=== PATIENT | female | born 1960 | race Caucasian/White ===

== ENCOUNTER 2017-05-31 16:39 | Inpatient (IN) | payer OTHER ==
[~2017-05-31] VITALS: Ht 165.1 cm; Wt 105.0 kg
[~2017-05-31 16:39] MED LIST: ALBU18HF INH; ASPI-496 PO; CARI350T14 PO; DICL100G19 TP; FLUT16SP NS; GLIP-164 PO; GUAI-103 PO; HYDR-3245 PO; LEVO88TA4 PO; LIRA0.6P SC; LOSA25TA5 PO; METF500T27 PO; METO100T5 PO; MULT-658 PO; NATE60TA PO; RABE20TA26 PO; SENN1TAB67 PO; SIMV20TA3 PO; SITA100T PO; TRIA1TAB3 PO; VENL150C6 PO
[2017-05-31] MEDS ORDERED: SODIUM CHLORIDE 0.9% 1,000 ML IV ONE (17:12)
[2017-05-31] MEDS ORDERED: ONDANSETRON 2MG/ML, 2ML IVPush ONE (17:30)
[2017-05-31] MEDS ORDERED: SODIUM CHLORIDE FLUSH 10ML SYR IVF ONE (17:30)
[2017-05-31] MEDS ORDERED: HYDROmorphone 1 MG/ML, 1ML IVPush PRN (17:30)
[2017-05-31] MEDS ORDERED: ONDANSETRON 2MG/ML, 2ML ONE (17:57)
[2017-05-31] MEDS ORDERED: HYDROmorphone 1 MG/ML, 1ML ONE (17:57)
[2017-05-31 17:59] LABS: HEMATOCRIT 47.2 % (34.6-47.8); HEMOGLOBIN 15.1 g/dL (11.7-16.4); WHITE BLOOD COUNT 14.2 x10^3/uL (3.4-10)
[2017-05-31 18:03] LABS: ASPARTATE AMINO TRANSFERASE 19 U/L (15-37); BLOOD UREA NITROGEN 17 mg/dL (7-18)
[2017-05-31] MEDS ORDERED: CEFTRIAXONE PMX 1GM/50ML 50 ML IVPB ONE (19:00)
[2017-05-31] MEDS ORDERED: SODIUM CHLORIDE 0.9% 1,000ML IVBOLUS ONE (19:00)
[2017-05-31] MEDS ORDERED: GUAIFENESIN/DM 200-20MG, 10ML UDC PO PRN (20:00)
[2017-05-31] MEDS ORDERED: ONDANSETRON 2MG/ML, 2ML IVPush PRN (20:00)
[2017-05-31] MEDS ORDERED: LABETALOL 5MG/ML, 20ML IVPush PRN (20:00)
[2017-05-31] MEDS ORDERED: FLUTICASONE NASAL SPRAY 16GM NAS PRN (20:00)
[2017-05-31] MEDS ORDERED: ONDANSETRON ODT 4 MG PO PRN (20:00)
[2017-05-31 20:17] LABS: BLOOD UREA NITROGEN 16 mg/dL (7-18)
[2017-05-31] MEDS ORDERED: CEFTRIAXONE PMX 1GM/50ML 50 ML ONE (20:26)
[2017-05-31 20:41] VITALS: BP 140/86
[2017-05-31 20:47] VITALS: BP 142/86
[2017-05-31] MEDS: INSULIN ASPART 100 UNITS/ML, PEN SQ-INSULIN SCH (21:00)
[2017-05-31] MEDS: SODIUM CHLORIDE 0.9% 1,000 ML IV SCH (22:15)
[2017-05-31] MEDS: CEFTRIAXONE PMX 2GM/50ML 50 ML IV SCH (22:16)
[2017-05-31] MEDS: PANTOPROZOLE 40MG TABLET PO SCH (22:47)
[2017-05-31] MEDS: SIMVASTATIN 20 MG TABLET PO SCH (22:47)
[2017-05-31] MEDS: CARISOPRODOL 350 MG TABLET PO SCH (22:47)
[2017-05-31] MEDS: HEPARIN 5,000 UNITS/ML, 1ML SQ SCH (22:47)
[2017-05-31] MEDS: INSULIN DETEMIR 100 UNITS/ML, PEN SQ-INSULIN SCH (22:48)
[2017-06-01 00:13] VITALS: BP 116/73
[2017-06-01] MEDS: OXYcodone IR 5MG TABLET PO PRN ×4 (00:19→22:08)
[2017-06-01] MEDS: SODIUM CHLORIDE 0.9% 1,000 ML IV SCH ×2 (05:16→15:38)
[2017-06-01 05:40] LABS: ASPARTATE AMINO TRANSFERASE 21 U/L (15-37); BLOOD UREA NITROGEN 13 mg/dL (7-18)
[2017-06-01] MEDS: INSULIN ASPART 100 UNITS/ML, PEN SQ-INSULIN SCH ×4 (07:00→22:38)
[2017-06-01 08:06] VITALS: BP 128/66
[2017-06-01] MEDS: INSULIN DETEMIR 100 UNITS/ML, PEN SQ-INSULIN SCH ×2 (08:07→20:22)
[2017-06-01] MEDS: HEPARIN 5,000 UNITS/ML, 1ML SQ SCH ×3 (08:08→22:04)
[2017-06-01] MEDS: VENLAFAXINE 75 MG CAP ER PO SCH (08:08)
[2017-06-01] MEDS: LEVOTHYROXINE 88 MCG TABLET PO SCH (08:09)
[2017-06-01] MEDS: CARISOPRODOL 350 MG TABLET PO SCH ×2 (08:09→22:05)
[2017-06-01] MEDS: ASPIRIN 81 MG TABLET EC PO SCH (08:09)
[2017-06-01] MEDS: TRIAMTERENE-HCTZ 37.5/25 MG TABLET PO SCH (08:09)
[2017-06-01] MEDS: METOPROLOL SUCCINATE 100 MG TAB.ER.24H PO SCH (08:09)
[2017-06-01] MEDS: LOSARTAN 25MG TABLET PO SCH (08:09)
[2017-06-01 08:50] LABS: HEMATOCRIT 39.6 % (34.6-47.8); HEMOGLOBIN 12.7 g/dL (11.7-16.4); WHITE BLOOD COUNT 9.6 x10^3/uL (3.4-10)
[2017-06-01] MEDS ORDERED: POTASSIUM CHLORIDE 20 MEQ TAB.ER.PRT PO ONE (09:00)
[2017-06-01 14:00] VITALS: BP_SYST 111; BP_SYST 94; BP_DIAS 67; BP_DIAS 72
[2017-06-01 18:46] VITALS: BP 105/69
[2017-06-01] MEDS: CEFTRIAXONE PMX 2GM/50ML 50 ML IV SCH (20:22)
[2017-06-01] MEDS: PANTOPROZOLE 40MG TABLET PO SCH (22:04)
[2017-06-01] MEDS: SIMVASTATIN 20 MG TABLET PO SCH (22:05)
[2017-06-02 01:57] VITALS: BP 137/83
[2017-06-02] MEDS: OXYcodone IR 5MG TABLET PO PRN ×4 (02:29→21:46)
[2017-06-02] MEDS: SODIUM CHLORIDE 0.9% 1,000 ML IV SCH ×3 (02:29→21:27)
[2017-06-02 05:34] LABS: HEMATOCRIT 43.8 % (34.6-47.8); WHITE BLOOD COUNT 9.7 x10^3/uL (3.4-10)
[2017-06-02 05:42] LABS: BLOOD UREA NITROGEN 8 mg/dL (7-18)
[2017-06-02] MEDS: LEVOTHYROXINE 88 MCG TABLET PO SCH (06:28)
[2017-06-02] MEDS: INSULIN ASPART 100 UNITS/ML, PEN SQ-INSULIN SCH ×4 (06:43→21:48)
[2017-06-02] MEDS: HEPARIN 5,000 UNITS/ML, 1ML SQ SCH ×3 (06:44→23:24)
[2017-06-02] MEDS: INSULIN DETEMIR 100 UNITS/ML, PEN SQ-INSULIN SCH ×2 (07:27→21:47)
[2017-06-02] MEDS: ASPIRIN 81 MG TABLET EC PO SCH (07:28)
[2017-06-02] MEDS: VENLAFAXINE 75 MG CAP ER PO SCH (07:28)
[2017-06-02] MEDS: LOSARTAN 25MG TABLET PO SCH (07:28)
[2017-06-02] MEDS: CARISOPRODOL 350 MG TABLET PO SCH ×2 (07:29→21:27)
[2017-06-02] MEDS: METOPROLOL SUCCINATE 100 MG TAB.ER.24H PO SCH (07:29)
[2017-06-02] MEDS: TRIAMTERENE-HCTZ 37.5/25 MG TABLET PO SCH (07:29)
[2017-06-02 07:55] VITALS: BP 119/74
[2017-06-02 13:57] VITALS: BP 116/75
[2017-06-02 19:15] VITALS: BP 151/84
[2017-06-02] MEDS: PANTOPROZOLE 40MG TABLET PO SCH (21:27)
[2017-06-02] MEDS: CEFTRIAXONE PMX 2GM/50ML 50 ML IV SCH (21:27)
[2017-06-02] MEDS: SIMVASTATIN 20 MG TABLET PO SCH (21:28)
[2017-06-03 03:00] VITALS: BP 134/82
[2017-06-03] MEDS: OXYcodone IR 5MG TABLET PO PRN ×2 (03:20→08:34)
[2017-06-03 05:12] LABS: HEMATOCRIT 41.5 % (34.6-47.8); HEMOGLOBIN 13.2 g/dL (11.7-16.4); WHITE BLOOD COUNT 8.8 x10^3/uL (3.4-10)
[2017-06-03 05:17] LABS: BLOOD UREA NITROGEN 10 mg/dL (7-18)
[2017-06-03] MEDS: SODIUM CHLORIDE 0.9% 1,000 ML IV SCH (05:28)
[2017-06-03] MEDS: LEVOTHYROXINE 88 MCG TABLET PO SCH (05:28)
[2017-06-03] MEDS: INSULIN ASPART 100 UNITS/ML, PEN SQ-INSULIN SCH ×2 (07:00→12:36)
[2017-06-03 07:26] VITALS: BP 150/75
[2017-06-03] MEDS: HEPARIN 5,000 UNITS/ML, 1ML SQ SCH (08:21)
[2017-06-03] MEDS: INSULIN DETEMIR 100 UNITS/ML, PEN SQ-INSULIN SCH (08:21)
[2017-06-03] MEDS: LOSARTAN 25MG TABLET PO SCH (08:22)
[2017-06-03] MEDS: VENLAFAXINE 75 MG CAP ER PO SCH (08:22)
[2017-06-03] MEDS: ASPIRIN 81 MG TABLET EC PO SCH (08:22)
[2017-06-03] MEDS: TRIAMTERENE-HCTZ 37.5/25 MG TABLET PO SCH (08:22)
[2017-06-03] MEDS: CARISOPRODOL 350 MG TABLET PO SCH (08:22)
[2017-06-03] MEDS: METOPROLOL SUCCINATE 100 MG TAB.ER.24H PO SCH (08:23)
[2017-06-03] MEDS ORDERED: CEFD300C37 PO (10:59)
[2017-06-03] MEDS ORDERED: INSU100V8 SQ (11:00)
== END 2017-06-03 13:20 | disposition home or self-care (01) | DRG 871 ==
LOC: ED 19:04 → EDIP 19:50 → 3NE 20:30 → DCLOUNGE 06-03 12:53
PROVIDERS: ADMIT Hospitalist; ATTEND Hospitalist
PROC: 0T9B70Z Drainage of Bladder with Drainage Device, Via Natural or Artificial Opening (ICD-10-PCS; principal; 2017-05-31)
DX: A41.9 Sepsis, unspecified organism (principal); N17.0 Acute kidney failure with tubular necrosis; E43 Unspecified severe protein-calorie malnutrition; E87.2 Acidosis; E86.0 Dehydration; N30.90 Cystitis, unspecified without hematuria; G89.29 Other chronic pain; M25.519 Pain in unspecified shoulder; M54.9 Dorsalgia, unspecified; E03.9 Hypothyroidism, unspecified; E66.01 Morbid (severe) obesity due to excess calories; E78.5 Hyperlipidemia, unspecified; E87.6 Hypokalemia; I10 Essential (primary) hypertension; K21.9 Gastro-esophageal reflux disease without esophagitis; Z96.643 Presence of artificial hip joint, bilateral; Z96.653 Presence of artificial knee joint, bilateral; E11.65 Type 2 diabetes mellitus with hyperglycemia; Z68.35 Body mass index [BMI] 35.0-35.9, adult; Z87.891 Personal history of nicotine dependence; Z98.891 History of uterine scar from previous surgery; Z98.1 Arthrodesis status; Z88.1 Allergy status to other antibiotic agents; Z88.8 Allergy status to other drugs, medicaments and biological substances; Z91.048 Other nonmedicinal substance allergy status; Z79.4 Long term (current) use of insulin; Z79.82 Long term (current) use of aspirin; Z80.1 Family history of malignant neoplasm of trachea, bronchus and lung; Z82.5 Family history of asthma and other chronic lower respiratory diseases; Z83.3 Family history of diabetes mellitus
CPT/HCPCS: 36415; 71010; 80048; 80053; 80061; 81001; 82010; 82040; 82962; 83036; 83605; 83690; 83880; 84145; 84439; 84443; 85025; 85610; 85651; 87040; 87086; 93005; 93306; 96374; 96375; J0696; J1170; J1644; J1815; J2405; J7030

== ENCOUNTER → 2017-09-18 | Outpatient (CLI) | payer OTHER ==
[~2017-09-18] MED LIST changes: +CEFD300C37 PO; +INSU100V8 SQ
== END | disposition home or self-care (01) ==
LOC: CFH 14:23
PROVIDERS: ATTEND Family Medicine
DX: R91.8 Other nonspecific abnormal finding of lung field (principal)
CPT/HCPCS: 71020

== ENCOUNTER 2017-10-01 14:18 | Emergency (ER) | payer OTHER ==
[~2017-10-01] VITALS: Ht 165.1 cm; Wt 126.5 kg
[2017-10-01] MEDS ORDERED: ALBUTEROL/IPRATROPIUM 2.5MG/0.5MG, 3 ML ONE (15:26)
[2017-10-01] MEDS ORDERED: ALBUTEROL/IPRATROPIUM 2.5MG/0.5MG, 3 ML NPPB ONE (15:30)
[2017-10-01 15:40] LABS: RAPID INFLUENZA A Negative (Negative)
[2017-10-01 15:41] LABS: RAPID INFLUENZA B Negative (Negative)
[2017-10-01 16:56] VITALS: BP 137/61
== END 2017-10-01 17:02 | disposition home or self-care (01) ==
LOC: ED 16:56
DX: J20.9 Acute bronchitis, unspecified (principal); J18.9 Pneumonia, unspecified organism; R09.02 Hypoxemia; I10 Essential (primary) hypertension; E11.9 Type 2 diabetes mellitus without complications
CPT/HCPCS: 71020; 87400; 93005; 94640; 99285; J7512; J7620

== ENCOUNTER → 2018-02-12 | Outpatient (CLI) | payer OTHER | END | disposition home or self-care (01) | LOC: CFH 16:48 | PROVIDERS: ATTEND Neurological Surgery | DX: M47.896 Other spondylosis, lumbar region (principal); K80.20 Calculus of gallbladder without cholecystitis without obstruction | CPT/HCPCS: 72110 ==

== ENCOUNTER 2018-10-08 07:15 | Day surgery (SDC) | payer OTHER ==
[~2018-10-08] VITALS: Ht 165.1 cm; Wt 120.0 kg
[~2018-10-08 07:15] MED LIST changes: -GLIP-164 PO; +GLIP10TA24 PO; +LOSA25TA25 PO; -LOSA25TA5 PO
[2018-10-08] MEDS ORDERED: LACTATED RINGERS 1,000 ML IV SCH (07:52)
[2018-10-08 08:41] VITALS: BP 116/75
[2018-10-08] MEDS ORDERED: FENTANYL PF 100 MCG/2ML ONE (08:44)
[2018-10-08] MEDS ORDERED: MIDAZOLAM 1 MG/ML, 2ML ONE (08:51)
[2018-10-08] MEDS ORDERED: GUAI-103 PO (08:55)
[2018-10-08] MEDS ORDERED: HYDR-3245 PO (08:55)
[2018-10-08] MEDS ORDERED: INSU100C5 SQ-INSULIN (08:55)
[2018-10-08] MEDS ORDERED: VENL150C PO (08:55)
[2018-10-08] MEDS ORDERED: INSU100V8 SQ (08:55)
[2018-10-08 08:58] LABS: ALANINE AMINOTRANSFERASE 27 U/L (12-78); ALBUMIN 3.5 g/dL (3.4-5.0); ANION GAP 9 mmol/L (5-15); CALCIUM 8.7 mg/dL (8.5-10.1); CHLORIDE 104 mmol/L (98-107); CREATININE 0.78 mg/dL (0.55-1.02)
[2018-10-08 09:01] LABS: ALKALINE PHOSPHATASE 87 U/L (45-117); BILIRUBIN,TOTAL 0.5 mg/dL (0.2-1.0); TOTAL PROTEIN 6.7 g/dL (6.4-8.2)
[2018-10-08] MEDS ORDERED: FENTANYL PF 100 MCG/2ML IV PRN (09:30)
[2018-10-08] MEDS ORDERED: ACETAMINOPHEN 325 MG TABLET PO PRN (09:30)
[2018-10-08] MEDS ORDERED: ONDANSETRON 2MG/ML, 2ML IV PRN (09:30)
[2018-10-08] MEDS ORDERED: PROPOFOL 10 MG/ML, 20ML ONE (10:52)
== END 2018-10-08 10:35 | disposition home or self-care (01) ==
LOC: OUT 07:15
PROVIDERS: ATTEND Internal Medicine Gastroenterology
DX: Z12.11 Encounter for screening for malignant neoplasm of colon (principal); D12.4 Benign neoplasm of descending colon; K57.30 Diverticulosis of large intestine without perforation or abscess without bleeding; K64.8 Other hemorrhoids; E11.9 Type 2 diabetes mellitus without complications; K21.9 Gastro-esophageal reflux disease without esophagitis; F32.9 Major depressive disorder, single episode, unspecified; E78.00 Pure hypercholesterolemia, unspecified; I10 Essential (primary) hypertension; F15.90 Other stimulant use, unspecified, uncomplicated; M19.90 Unspecified osteoarthritis, unspecified site; E66.9 Obesity, unspecified; Z68.44 Body mass index [BMI] 60.0-69.9, adult; Z98.890 Other specified postprocedural states; Z96.643 Presence of artificial hip joint, bilateral; Z79.4 Long term (current) use of insulin; Z79.899 Other long term (current) drug therapy; Z79.82 Long term (current) use of aspirin; Z88.1 Allergy status to other antibiotic agents; Z88.8 Allergy status to other drugs, medicaments and biological substances; Z91.048 Other nonmedicinal substance allergy status; Z86.010 Personal history of colon polyps; Z87.891 Personal history of nicotine dependence; Z83.71 Family history of colonic polyps; Z83.3 Family history of diabetes mellitus; Z82.49 Family history of ischemic heart disease and other diseases of the circulatory system
CPT/HCPCS: 36415; 45385; 80053; 82962; 88305; 93005; J2250; J2704; J3010; J7120

== ENCOUNTER → 2019-02-10 | Outpatient (CLI) | payer OTHER ==
[~2019-02-10] MED LIST changes: +INSU100C5 SQ-INSULIN; +VENL150C PO
== END | disposition home or self-care (01) ==
LOC: CFH 12:36
PROVIDERS: ATTEND Family Medicine
DX: N63.20 Unspecified lump in the left breast, unspecified quadrant (principal)
CPT/HCPCS: 76641; 77065; G0279

== ENCOUNTER → 2019-08-05 | Outpatient (CLI) | payer MEDICARE ==
[~2019-08-05] MED LIST changes: -FLUT16SP NS; +FLUT16SP24 NS; +INSU100I32 SQ; +LIDOCANE INJ; +LOPE-114 PO; +OIL PO; +TIZA4CAP PO; +VOLTAREN TP; +WHEA1POW5 PO; +diclofenac gel TP; +probiotic PO; +vitamin b 12 PO
[2019-08-05 15:22] LABS: BASOPHILS # (AUTO) 0.05 x10^3/uL (0-0.1); BASOPHILS % (AUTO) 0 % (0-1); EOSINOPHILS # (AUTO) 0.13 x10^3/uL (0-0.4); EOSINOPHILS % (AUTO) 1 % (1-7); LYMPHOCYTES # (AUTO) 1.64 x10^3/uL (1-3.4); LYMPHOCYTES % (AUTO) 15 % (22-44); MD NO; MEAN CORPUSCULAR HEMOGLOBIN 27.9 pg (27.0-34.8); MEAN CORPUSCULAR HGB CONC 31.9 g/dL (32.4-35.8); MEAN CORPUSCULAR VOLUME 87.4 fL (80-100); MEAN PLATELET VOLUME 7.9 fL (7.4-10.4); MONOCYTES # (AUTO) 0.59 x10^3/uL (0.2-0.8); MONOCYTES % (AUTO) 5 % (2-9); NEUTROPHILS # (AUTO) 8.84 x10^3/uL (1.8-6.8); NEUTROPHILS % (AUTO) 79 % (42-75); PLATELET COUNT 336 x10^3/uL (130-400); RED CELL DISTRIBUTION WIDTH 16.6 % (9.6-15.2)
[2019-08-05 15:35] LABS: ALANINE AMINOTRANSFERASE 26 U/L (12-78); ALBUMIN 3.5 g/dL (3.4-5.0); ANION GAP 5 mmol/L (5-15); CHLORIDE 103 mmol/L (98-107); CREATININE 1.05 mg/dL (0.55-1.02)
[2019-08-05 15:37] LABS: ALKALINE PHOSPHATASE 103 U/L (45-117); BILIRUBIN,TOTAL 0.2 mg/dL (0.2-1.0); TOTAL PROTEIN 6.8 g/dL (6.4-8.2)
[2019-08-05 15:53] LABS: INTERNATIONAL NORMALIZED RATIO 0.92 (0.93-1.1); PROTHROMBIN TIME 9.7 Seconds (9.6-11.5)
== END | disposition home or self-care (01) ==
LOC: STAR 13:50
PROVIDERS: ATTEND Family Medicine
DX: Z01.818 Encounter for other preprocedural examination (principal); R19.07 Generalized intra-abdominal and pelvic swelling, mass and lump; J90 Pleural effusion, not elsewhere classified; J98.11 Atelectasis; E11.9 Type 2 diabetes mellitus without complications
CPT/HCPCS: 36415; 71046; 80053; 85025; 85610; 85730; 93005

== ENCOUNTER 2019-08-24 14:59 | Outpatient (CLI) | payer MEDICARE | END 2019-08-24 23:59 | disposition home or self-care (01) | LOC: CVU 14:59 → RAD 23:59 | PROVIDERS: ATTEND Family Medicine | DX: R06.02 Shortness of breath (principal); R07.89 Other chest pain; Z91.040 Latex allergy status; Z88.9 Allergy status to unspecified drugs, medicaments and biological substances; Z88.8 Allergy status to other drugs, medicaments and biological substances; Z88.1 Allergy status to other antibiotic agents; Z88.2 Allergy status to sulfonamides; Z87.891 Personal history of nicotine dependence | CPT/HCPCS: 71046 ==

== ENCOUNTER 2019-08-24 17:22 | Inpatient (IN) | payer MEDICARE ==
[~2019-08-24] VITALS: Ht 162.6 cm; Wt 127.0 kg
--- NOTE | 2019-08-24 17:54 | NUR ---
THIS IS A 59 THAT CAME IN FOR OUTPT XRAY AND THOROCENTISIS OUTPATIENT. WHILE WAITING WORSENING SOB WAITING FOR PROCEEDURE. APT WAS CHANGED TO TOMORROW, DUE TO WORSENING SOB PT CAME TO ER FOR TX. UPON ARRIVAL TO ROOM PT O2 SAT 70% ON 4L NC. PT PLACED ON MAST AT 9L WAITING FOR RESPIRATORY ARRIVAL. O2 SAT UP TO 95%. REPIRATORY PLACED PT ON OPTIFLOW AT 15L O2 SAT 96%.
--- NOTE | 2019-08-24 18:10 | NUR ---
REPIRATORY CALLED TO ASSIST TRANSPORT PT TO IR. PT ON WAY TO IR NOW
[2019-08-24] MEDS ORDERED: ONDANSETRON 2MG/ML, 2ML IVPush ONE (19:30)
[2019-08-24] MEDS ORDERED: MORPHINE SULFATE 4 MG/ML, 1ML IVPush PRN (19:30)
--- NOTE | 2019-08-24 19:35 | NUR ---
RESPIRATORY AT BEDSIDE TO WEAN PT FROM OPTIFLOW. PT ON 13L VIA MASK O2 SAT 91%
[2019-08-24] MEDS ORDERED: ONDANSETRON 2MG/ML, 2ML ONE (19:38)
[2019-08-24] MEDS ORDERED: MORPHINE SULFATE 4 MG/ML, 1ML ONE (19:39)
--- NOTE | 2019-08-24 20:05 | NUR ---
HOSPITALIST AT BEDSIDE TO ADMIT PT
[2019-08-24] MEDS ORDERED: FLUTICASONE NASAL SPRAY 16GM NAS PRN (20:30)
[2019-08-24] MEDS ORDERED: POLYETHYLENE GLYCOL 17 GM PACKET PO PRN (20:30)
[2019-08-24] MEDS ORDERED: morphine SULFATE 10 MG/ML, 1ML IVPush PRN (20:30)
[2019-08-24] MEDS ORDERED: SODIUM CHLORIDE FLUSH 10ML SYR IVF PRN (20:30)
[2019-08-24] MEDS ORDERED: BISACODYL 10 MG SUPP PR PRN (20:30)
[2019-08-24] MEDS ORDERED: ONDANSETRON ODT 4 MG PO PRN (20:30)
[2019-08-24] MEDS ORDERED: WHEAT DEXTRIN PO SCH (20:30)
[2019-08-24] MEDS ORDERED: ACETAMINOPHEN 325 MG TABLET PO PRN (20:30)
[2019-08-24 20:41] LABS: BASOPHILS # (AUTO) 0.05 x10^3/uL (0-0.1); BASOPHILS % (AUTO) 1 % (0-1); EOSINOPHILS # (AUTO) 0.15 x10^3/uL (0-0.4); EOSINOPHILS % (AUTO) 1 % (1-7); LYMPHOCYTES # (AUTO) 1.53 x10^3/uL (1-3.4); LYMPHOCYTES % (AUTO) 13 % (22-44); MD NO; MEAN CORPUSCULAR HEMOGLOBIN 27.2 pg (27.0-34.8); MEAN CORPUSCULAR HGB CONC 31.6 g/dL (32.4-35.8); MEAN CORPUSCULAR VOLUME 86.1 fL (80-100); MEAN PLATELET VOLUME 7.7 fL (7.4-10.4); MONOCYTES # (AUTO) 0.73 x10^3/uL (0.2-0.8); MONOCYTES % (AUTO) 6 % (2-9); NEUTROPHILS % (AUTO) 79 % (42-75); PLATELET COUNT 359 x10^3/uL (130-400); RED BLOOD COUNT 4.95 x10^6/uL (3.82-5.3)
[2019-08-24 20:46] LABS: ALANINE AMINOTRANSFERASE 26 U/L (12-78); ALBUMIN 3.2 g/dL (3.4-5.0); ANION GAP 5 mmol/L (5-15); CALCIUM 9.2 mg/dL (8.5-10.1); CHLORIDE 100 mmol/L (98-107); CREATININE 0.82 mg/dL (0.55-1.02)
[2019-08-24 20:48] LABS: ALKALINE PHOSPHATASE 111 U/L (45-117); BILIRUBIN,TOTAL 0.3 mg/dL (0.2-1.0)
[2019-08-24] MEDS: INSULIN DEGLUDEC 100 UNIT SQ SCH (21:00)
[2019-08-24] MEDS: INSULIN ASPART 100 UNIT SQ SCH (21:00)
[2019-08-24] MEDS ORDERED: OMNIPAQUE 350 MG/ML, 75ML BOTTLE ONE (21:18)
--- NOTE | 2019-08-24 21:24 | NUR ---
PT BACK FROM CT READY FOR TRANSPORT TO FLOOR.
[2019-08-24 21:46] VITALS: BP 136/76
[2019-08-24] MEDS ORDERED: VENLAFAXINE 75 MG CAP ER PO SCH (22:00)
[2019-08-24] MEDS: SODIUM CHLORIDE FLUSH 10ML SYR IVF SCH (22:45)
[2019-08-24] MEDS ORDERED: TIZANIDINE 4MG TABLET PO ONE (23:00)
[2019-08-24] MEDS: SIMVASTATIN 20 MG TABLET PO SCH (23:03)
[2019-08-24] MEDS: HYDROcodone/APAP 10/325 MG TABLET PO PRN (23:03)
[2019-08-25] MEDS: TIZANIDINE 4MG TABLET PO SCH ×2 (00:04→20:24)
[2019-08-25 04:31] VITALS: BP 104/63
[2019-08-25 04:46] LABS: BASOPHILS # (AUTO) 0.03 x10^3/uL (0-0.1); BASOPHILS % (AUTO) 0 % (0-1); EOSINOPHILS # (AUTO) 0.13 x10^3/uL (0-0.4); EOSINOPHILS % (AUTO) 2 % (1-7); LYMPHOCYTES # (AUTO) 1.45 x10^3/uL (1-3.4); LYMPHOCYTES % (AUTO) 17 % (22-44); MD NO; MEAN CORPUSCULAR HEMOGLOBIN 26.9 pg (27.0-34.8); MEAN CORPUSCULAR HGB CONC 31.3 g/dL (32.4-35.8); MEAN CORPUSCULAR VOLUME 86.2 fL (80-100); MEAN PLATELET VOLUME 7.7 fL (7.4-10.4); MONOCYTES # (AUTO) 0.54 x10^3/uL (0.2-0.8); MONOCYTES % (AUTO) 6 % (2-9); NEUTROPHILS % (AUTO) 75 % (42-75); PLATELET COUNT 292 x10^3/uL (130-400); RED BLOOD COUNT 4.37 x10^6/uL (3.82-5.3); RED CELL DISTRIBUTION WIDTH 16.5 % (9.6-15.2)
[2019-08-25 04:56] LABS: ALANINE AMINOTRANSFERASE 22 U/L (12-78); ALBUMIN 2.6 g/dL (3.4-5.0); ANION GAP 3 mmol/L (5-15); CALCIUM 8.8 mg/dL (8.5-10.1); CHLORIDE 101 mmol/L (98-107); CREATININE 0.85 mg/dL (0.55-1.02)
[2019-08-25 04:59] LABS: ALKALINE PHOSPHATASE 92 U/L (45-117); BILIRUBIN,TOTAL 0.2 mg/dL (0.2-1.0); TOTAL PROTEIN 5.9 g/dL (6.4-8.2)
[2019-08-25] MEDS: LEVOTHYROXINE 88 MCG TABLET PO SCH (05:58)
[2019-08-25] MEDS: HYDROcodone/APAP 10/325 MG TABLET PO PRN ×4 (06:10→18:43)
[2019-08-25 07:35] VITALS: BP 118/62
[2019-08-25] MEDS ORDERED: TIZANIDINE 4MG TABLET PO SCH (09:00)
[2019-08-25] MEDS: INSULIN DEGLUDEC 100 UNIT SQ SCH (09:00)
[2019-08-25] MEDS: INSULIN ASPART 100 UNIT SQ SCH (09:00)
[2019-08-25] MEDS ORDERED: INSULIN DEGLUDEC 30 UNIT SQ SCH ×2 (09:00→21:00)
[2019-08-25] MEDS: SODIUM CHLORIDE FLUSH 10ML SYR IVF SCH ×2 (09:57→20:24)
[2019-08-25] MEDS: LOSARTAN 25MG TABLET PO SCH (09:58)
[2019-08-25] MEDS: TRIAMTERENE-HCTZ 37.5/25 MG TABLET PO SCH (09:58)
[2019-08-25] MEDS: CYANOCOBALAMIN 1,000 MCG TABLET PO SCH (09:58)
[2019-08-25] MEDS: ASPIRIN 81 MG TABLET EC PO SCH (09:58)
[2019-08-25] MEDS: SENNA/DOCUSATE TABLET PO SCH ×2 (09:58→10:02)
[2019-08-25] MEDS: LOPERAMIDE 2 MG CAPSULE PO SCH (09:58)
[2019-08-25] MEDS: METOPROLOL SUCCINATE 50 MG TAB.ER.24H PO SCH (09:58)
[2019-08-25] MEDS ORDERED: INSULIN ASPART 100 UNIT SQ SCH (11:03)
[2019-08-25 13:58] VITALS: BP 114/61
[2019-08-25] MEDS ORDERED: INSULIN LISPRO 100 UNITS/ML, PEN SQ-INSULIN SCH ×2 (16:00→21:00)
[2019-08-25] MEDS: INSULIN ASPART 100 UNITS/ML, VIAL SQ-INSULIN SCH ×2 (16:05→20:25)
[2019-08-25 19:55] VITALS: BP 110/61
[2019-08-25] MEDS: SIMVASTATIN 20 MG TABLET PO SCH (20:24)
[2019-08-25] MEDS: VENLAFAXINE 75 MG CAP ER PO SCH (20:24)
[2019-08-25] MEDS: INSULIN DEGLUDEC 30 UNIT SQ SCH (20:26)
[2019-08-25] MEDS: DEXAMETHASONE 4 MG TABLET PO SCH (20:34)
[2019-08-26] MEDS: HYDROcodone/APAP 10/325 MG TABLET PO PRN ×6 (00:14→21:54)
[2019-08-26 02:06] VITALS: BP 123/64
[2019-08-26] MEDS: LEVOTHYROXINE 88 MCG TABLET PO SCH (05:28)
[2019-08-26 07:11] VITALS: BP 110/64
[2019-08-26] MEDS: INSULIN ASPART 100 UNITS/ML, VIAL SQ-INSULIN SCH ×4 (07:41→23:55)
[2019-08-26] MEDS: INSULIN DEGLUDEC 30 UNIT SQ SCH ×2 (07:41→20:28)
[2019-08-26] MEDS: METOPROLOL SUCCINATE 50 MG TAB.ER.24H PO SCH (07:43)
[2019-08-26] MEDS: VENLAFAXINE 75 MG CAP ER PO SCH ×2 (07:43→21:50)
[2019-08-26] MEDS: TRIAMTERENE-HCTZ 37.5/25 MG TABLET PO SCH (07:43)
[2019-08-26] MEDS: DEXAMETHASONE 4 MG TABLET PO SCH (07:44)
[2019-08-26] MEDS: LOSARTAN 25MG TABLET PO SCH (07:44)
[2019-08-26] MEDS: CYANOCOBALAMIN 1,000 MCG TABLET PO SCH (07:44)
[2019-08-26] MEDS: LOPERAMIDE 2 MG CAPSULE PO SCH (07:44)
[2019-08-26] MEDS: ASPIRIN 81 MG TABLET EC PO SCH (07:44)
[2019-08-26 08:48] LABS: BASOPHILS % (AUTO) 0 % (0-1); EOSINOPHILS % (AUTO) 0 % (1-7); LYMPHOCYTES # (AUTO) 0.72 x10^3/uL (1-3.4); LYMPHOCYTES % (AUTO) 9 % (22-44); MD NO; MEAN CORPUSCULAR HGB CONC 31.3 g/dL (32.4-35.8); MEAN CORPUSCULAR VOLUME 86.3 fL (80-100); MEAN PLATELET VOLUME 7.8 fL (7.4-10.4); MONOCYTES # (AUTO) 0.07 x10^3/uL (0.2-0.8); MONOCYTES % (AUTO) 1 % (2-9); NEUTROPHILS # (AUTO) 7.72 x10^3/uL (1.8-6.8); NEUTROPHILS % (AUTO) 91 % (42-75); PLATELET COUNT 312 x10^3/uL (130-400); RED BLOOD COUNT 4.74 x10^6/uL (3.82-5.3); RED CELL DISTRIBUTION WIDTH 16.6 % (9.6-15.2)
[2019-08-26 08:59] LABS: ALBUMIN 2.9 g/dL (3.4-5.0); ANION GAP 5 mmol/L (5-15); CALCIUM 8.8 mg/dL (8.5-10.1); CHLORIDE 99 mmol/L (98-107)
[2019-08-26] MEDS: SENNA/DOCUSATE TABLET PO SCH ×2 (09:00→21:50)
[2019-08-26 09:05] LABS: ALANINE AMINOTRANSFERASE 26 U/L (12-78); ALKALINE PHOSPHATASE 108 U/L (45-117); BILIRUBIN,TOTAL 0.3 mg/dL (0.2-1.0); CREATININE 0.91 mg/dL (0.55-1.02); TOTAL PROTEIN 6.9 g/dL (6.4-8.2)
[2019-08-26] MEDS ORDERED: FUROSEMIDE 20 MG/2 ML IV ONE (09:30)
[2019-08-26] MEDS: SODIUM CHLORIDE FLUSH 10ML SYR IVF SCH ×3 (09:50→21:00)
[2019-08-26] MEDS ORDERED: ONDANSETRON 16 MG, DEXAMETHASONE 12 MG in SODIUM CHLORIDE 0.9% 50 ML IVPB ONE (12:00)
[2019-08-26] MEDS ORDERED: FAMOTIDINE 20 MG/2 ML IVPush ONE (12:00)
[2019-08-26] MEDS ORDERED: DIPHENHYDRAMINE 50 MG/ML, 1ML IVPush ONE (12:00)
[2019-08-26] MEDS ORDERED: PACLITAXEL 350 MG in SODIUM CHLORIDE 0.9% 500 ML IV ONE (12:30)
[2019-08-26 15:18] VITALS: BP 127/70
[2019-08-26] MEDS ORDERED: CARBOPLATIN 900 MG in SODIUM CHLORIDE 0.9% 250 ML IV ONE (15:30)
[2019-08-26] MEDS ORDERED: INSULIN ASPART 100 UNITS/ML, VIAL SQ-INSULIN SCH ×3 (16:00)
[2019-08-26 16:22] LABS: MICROSCOPIC NOT IND
[2019-08-26] MEDS ORDERED: DEXTROSE 50%, 50ML SYRINGE IVPush PRN (17:00)
[2019-08-26] MEDS ORDERED: DEXTROSE 4 GM TAB.CHEW PO PRN (17:00)
[2019-08-26] MEDS ORDERED: ICN INSULIN (R) 0.5 UNITS/ML IV SQ-INSULIN SCH (17:00)
[2019-08-26] MEDS ORDERED: GLUCAGON 1 MG IM PRN (17:00)
[2019-08-26] MEDS ORDERED: INSULIN REGULAR 100 UNITS/ML, 3ML VIAL SQ-INSULIN SCH (17:00)
[2019-08-26 19:15] VITALS: BP 134/79
[2019-08-26] MEDS: SIMVASTATIN 20 MG TABLET PO SCH (21:45)
[2019-08-26] MEDS: TIZANIDINE 4MG TABLET PO SCH (21:50)
[2019-08-26] MEDS ORDERED: INSULIN REGULAR 100 UNITS/ML, 3ML VIAL IVPush SCH (23:00)
[2019-08-27 03:55] VITALS: BP 139/86
[2019-08-27] MEDS: INSULIN ASPART 100 UNITS/ML, VIAL SQ-INSULIN SCH ×4 (04:00→16:00)
[2019-08-27] MEDS: HYDROcodone/APAP 10/325 MG TABLET PO PRN ×3 (04:13→15:04)
[2019-08-27] MEDS: LEVOTHYROXINE 88 MCG TABLET PO SCH (05:23)
[2019-08-27 06:42] VITALS: BP 123/61
[2019-08-27] MEDS: VENLAFAXINE 75 MG CAP ER PO SCH (07:33)
[2019-08-27] MEDS: LOPERAMIDE 2 MG CAPSULE PO SCH (07:33)
[2019-08-27] MEDS: ASPIRIN 81 MG TABLET EC PO SCH (07:33)
[2019-08-27] MEDS: METOPROLOL SUCCINATE 50 MG TAB.ER.24H PO SCH (07:34)
[2019-08-27] MEDS: CYANOCOBALAMIN 1,000 MCG TABLET PO SCH (07:34)
[2019-08-27] MEDS: TRIAMTERENE-HCTZ 37.5/25 MG TABLET PO SCH (07:34)
[2019-08-27] MEDS: LOSARTAN 25MG TABLET PO SCH (07:35)
[2019-08-27] MEDS: SENNA/DOCUSATE TABLET PO SCH (07:35)
[2019-08-27] MEDS: SODIUM CHLORIDE FLUSH 10ML SYR IVF SCH ×2 (07:36)
[2019-08-27] MEDS: INSULIN DEGLUDEC 30 UNIT SQ SCH (07:43)
[2019-08-27] MEDS: ONDANSETRON ODT 4 MG PO SCH ×2 (08:41→15:04)
[2019-08-27] MEDS ORDERED: PROCHLORPERAZINE 5 MG/ML, 2ML IV SCH (12:00)
[2019-08-27 12:21] VITALS: BP 138/62
== END 2019-08-27 17:34 | disposition home or self-care (01) | DRG 180 ==
LOC: MERGE 17:22 → ED 20:08 → EDIP 20:09 → 4NW 21:38 → DCLOUNGE 08-27 17:10
PROVIDERS: ADMIT Internal Medicine; ATTEND Internal Medicine
PROC: 0W993ZZ Drainage of Right Pleural Cavity, Percutaneous Approach (ICD-10-PCS; principal; 2019-08-24)
PROC: 3E04305 Introduction of Other Antineoplastic into Central Vein, Percutaneous Approach (ICD-10-PCS; 2019-08-26)
DX: C78.00 Secondary malignant neoplasm of unspecified lung (principal); J96.21 Acute and chronic respiratory failure with hypoxia; C56.9 Malignant neoplasm of unspecified ovary; J91.0 Malignant pleural effusion; Z68.42 Body mass index [BMI] 45.0-49.9, adult; J81.1 Chronic pulmonary edema; I10 Essential (primary) hypertension; E78.5 Hyperlipidemia, unspecified; E66.01 Morbid (severe) obesity due to excess calories; E11.9 Type 2 diabetes mellitus without complications; E03.9 Hypothyroidism, unspecified; E78.00 Pure hypercholesterolemia, unspecified; G89.29 Other chronic pain; M19.90 Unspecified osteoarthritis, unspecified site; Z79.4 Long term (current) use of insulin; Z80.9 Family history of malignant neoplasm, unspecified; Z82.49 Family history of ischemic heart disease and other diseases of the circulatory system; Z82.5 Family history of asthma and other chronic lower respiratory diseases; Z83.3 Family history of diabetes mellitus; Z87.891 Personal history of nicotine dependence
CPT/HCPCS: 32555; 36415; 71045; 71046; 71260; 80053; 81003; 82947; 82962; 85025; 86304; 96374; 96375; G0378; J1100; J1815; J2405; J9045; J9267; Q0162; Q9967; J0780; J1200; J1940; J2270; J3490; J7040; J7050

== ENCOUNTER 2019-09-08 13:06 | Emergency (ER) | payer MEDICARE ==
[~2019-09-08] VITALS: Ht 162.6 cm; Wt 127.4 kg
[2019-09-08] MEDS ORDERED: ONDANSETRON 2MG/ML, 2ML IVPush ONE (14:00)
[2019-09-08] MEDS ORDERED: MORPHINE SULFATE 4 MG/ML, 1ML IVPush PRN (14:00)
[2019-09-08] MEDS ORDERED: SODIUM CHLORIDE FLUSH 10ML SYR IVF ONE (14:00)
[2019-09-08 14:21] LABS: BASOPHILS # (AUTO) 0.03 x10^3/uL (0-0.1); BASOPHILS % (AUTO) 1 % (0-1); EOSINOPHILS # (AUTO) 0.16 x10^3/uL (0-0.4); EOSINOPHILS % (AUTO) 5 % (1-7); LYMPHOCYTES # (AUTO) 1.18 x10^3/uL (1-3.4); LYMPHOCYTES % (AUTO) 34 % (22-44); MD NO; MEAN CORPUSCULAR HEMOGLOBIN 26.9 pg (27.0-34.8); MEAN CORPUSCULAR HGB CONC 31.1 g/dL (32.4-35.8); MEAN CORPUSCULAR VOLUME 86.4 fL (80-100); MEAN PLATELET VOLUME 7.2 fL (7.4-10.4); MONOCYTES # (AUTO) 0.53 x10^3/uL (0.2-0.8); MONOCYTES % (AUTO) 15 % (2-9); NEUTROPHILS # (AUTO) 1.63 x10^3/uL (1.8-6.8); NEUTROPHILS % (AUTO) 46 % (42-75); PLATELET COUNT 297 x10^3/uL (130-400); RED BLOOD COUNT 4.82 x10^6/uL (3.82-5.3); RED CELL DISTRIBUTION WIDTH 17.1 % (9.6-15.2)
[2019-09-08 14:28] LABS: ALBUMIN 3.5 g/dL (3.4-5.0); CALCIUM 9.1 mg/dL (8.5-10.1); CREATININE 0.82 mg/dL (0.55-1.02)
--- NOTE | 2019-09-08 14:29 | NUR ---
PT A&OX4, RESP LABORED, SPEECH CLEAR, ABLE TO SPEAK IN SHORT COMPLETE SENTENCES, SKIN WNL. STATES "COULD NOT BREATH DUE TO MY OVARIAN CANCER PUSHING UP ON MY LUNG." DAILY MEDS TAKEN TODAY; PAIN MED TAKEN AT 0800, MISSED NOON DOSE.
[2019-09-08 14:34] LABS: TROPONIN I < 0.015 ng/mL (0.000-0.045)
[2019-09-08 14:36] LABS: ANION GAP 4 mmol/L (5-15); CHLORIDE 103 mmol/L (98-107)
--- NOTE | 2019-09-08 14:43 | NUR ---
ROOM AIR O2 SAT: 85%. O2 REAPPLIED; WILL BE TITRATED. USUAL HOME O2: 3LNC
--- NOTE | 2019-09-08 15:10 | NUR ---
AMBULATORY TO ROOM BR & BACK TO [facility]; VERY WINDED W/ EXERTION; GAIT STEADY.
[2019-09-08] MEDS ORDERED: HYDROcodone/APAP 5/325 TABLET ONE (15:11)
[2019-09-08] MEDS ORDERED: DICL100G19 TP (15:29)
[2019-09-08] MEDS ORDERED: LIDO700A20 TD (15:29)
[2019-09-08] MEDS ORDERED: VENL150C6 PO (15:29)
[2019-09-08] MEDS ORDERED: HYDROcodone/APAP 5/325 TABLET PO ONE (15:30)
[2019-09-08] MEDS ORDERED: LIDOCAINE-MPF 1%, 5ML ONE ×2 (16:15→16:30)
--- NOTE | 2019-09-08 17:34 | NUR ---
RETURNED FROM RADIOLOGY. BS COMMODE CHAIR TO ROOM. PT UP TO COMMVENICE CHAIR, O2 6LNC ON PT. Addendum: 09/08/19 at 1735 by FERN DRESSING TO RT LAT BACK FROM THORACENTESIS PROCEDURE.
--- NOTE | 2019-09-08 17:47 | NUR ---
ASSISTED BACK TO [facility]. VS & CARDIAC MONITORING REAPPLIED. O2 AT 6LNC
--- NOTE | 2019-09-08 18:16 | NUR ---
PT CARE ENDORSED TO BREAK RN: GEORGINA.
--- NOTE | 2019-09-08 18:21 | NUR ---
SBAR REPORT FROM LEE CLINE
--- NOTE | 2019-09-08 19:05 | NUR ---
PT NOTIFIED OF PENDING DC. PT REQUESTING PAIN MED PRIOR TO DC. WILL CONSULT ERP.
[2019-09-08 19:08] VITALS: BP 116/62
[2019-09-08] MEDS ORDERED: HYDROcodone/APAP 10/325 MG TABLET ONE (19:18)
[2019-09-08] MEDS ORDERED: HYDROcodone/APAP 10/325 MG TABLET PO ONE (19:30)
[2019-09-16] MEDS ORDERED: ONDA4TAB7 PO (09:47)
[2019-09-16] MEDS ORDERED: OXYC10TA6 PO (09:47)
[2019-09-16] MEDS ORDERED: PROC10TA78 PO (09:47)
[2019-09-16] MEDS ORDERED: ACET500T76 PO (09:47)
[2019-09-16] MEDS ORDERED: DEXA1.5T6 PO (09:47)
[2019-09-16] MEDS ORDERED: DICL100G29 TP (09:47)
[2019-09-16] MEDS ORDERED: CBD oil PO (09:47)
[2019-09-16] MEDS ORDERED: VENL150C PO (09:47)
== END 2019-09-08 19:38 | disposition home or self-care (01) ==
LOC: ED 16:19
DX: C56.9 Malignant neoplasm of unspecified ovary (principal); J91.0 Malignant pleural effusion; I10 Essential (primary) hypertension; E11.9 Type 2 diabetes mellitus without complications; E78.00 Pure hypercholesterolemia, unspecified; Z87.891 Personal history of nicotine dependence
CPT/HCPCS: 32555; 36415; 71045; 80048; 82040; 83880; 84484; 85025; 93005; 99285

== ENCOUNTER → 2019-09-15 | Outpatient (CLI) | payer MEDICARE ==
[~2019-09-15] MED LIST changes: +ACET500T76 PO; +CBD oil PO; +DEXA1.5T6 PO; +DICL100G29 TP; +LIDO700A20 TD; +ONDA4TAB7 PO; +OXYC10TA6 PO; +PROC10TA78 PO
== END | disposition home or self-care (01) ==
LOC: CFH 13:34
PROVIDERS: ATTEND Nurse Practitioner Acute Care
DX: Z51.11 Encounter for antineoplastic chemotherapy (principal); C56.9 Malignant neoplasm of unspecified ovary; C78.00 Secondary malignant neoplasm of unspecified lung
CPT/HCPCS: 71046